=== PATIENT | male | born 1935 | race Caucasian/White ===

== ENCOUNTER 2018-10-07 21:40 | Emergency (ER) | payer OTHER, BC ==
--- NOTE | 2018-10-07 21:50 | PDOC ---
History of Present Illness - General Stated Complaint: FALL Time Seen by Provider: 10/07/18 21:50 History Source: Patient Exam Limitations: No Limitations - History of Present Illness Initial Comments: Pt is an 83 yo M, with PMH of BPH and lymphoma (s/p chemo and radiation in remission since 2016), who is presenting with R knee pain after a fall. Pt states he was blowing snow in his front drive, and he was wearing slippers. Pt slipped on the wet ground, and fell onto his R knee. Pt was unable to get himself up, but called for his daughter in the house, who called EMS. Pt did not take any pain medications prior to arrival. Pt did not fall and hit his head , and he is not on any blood thinner medications. Pt denies any fevers/chills, headache, vision changes, syncope, chest pain, palpitations, SOB, nausea/ vomiting, abdominal pain, loss of stool/urine incontinence, numbness and tingling in his extremities, urinary symptoms, diarrhea/constipation, or leg swelling. Pt was also in the ER this AM, after a burn to his R lateral ankle from the humidifier wire in his house. Pt has been keeping the bandages clean and has silver cream to apply to the injury tonight, with clean bandage supplies at home. Social: Pt denies any cigarette, alcohol, or drug use. Pt denies any recent travel or sick contacts. Surgical: rotator cuff injury, biceps tendon tear. Family: no relevant history. 10/08/18 05:33 Past History - Travel Traveled outside of the country in the last 30 days: No Close contact w/someone who was outside of country & ill: No - Past Medical History Allergies/Adverse Reactions: Allergies Allergy/AdvReac Type Severity Reaction Status Date / Time latex Allergy Severe Hives Verified 10/07/18 22:18 No Known Drug Allergies Allergy Verified 10/07/18 22:18 Anemia: No Asthma: No Cancer: Yes (lymphoma) Cardiac Disorders: No Hx Myocardial Infarction: No Diabetes: No HTN: No Hypercholesterolemia: No - Surgical History Orthopedic Surgery: Yes (rotator cuff, biceps tendon rupture) Review of Systems - Review of Systems Able to Perform ROS?: Yes Is the patient limited Sinhala proficient: No Constitutional: Yes: Weight Stable. No: Chills, Diaphoresis, Fever, Loss of Appetite, Weakness HEENTM: No: Blurred Vision, Double Vision, Nose Congestion, Throat Pain Respiratory: No: Cough, Orthopnea, Shortness of Breath Cardiac (ROS): No: Chest Pain, Edema, Irregular Heart Rate, Lightheadedness, Palpitations, Syncope, Chest Tightness ABD/GI: No: Constipated, Diarrhea, Nausea, Poor Appetite, Poor Fluid Intake, Vomiting, Abdominal cramping : No: Burning, Dysuria, Pain, Urgency Musculoskeletal: Yes: See HPI, Joint Pain, Joint Swelling. No: Back Pain, Muscle Pain, Muscle Weakness, Neck Pain Integumentary: No: Bruising, Erythema, Rash Neurological: No: Headache, Numbness, Paresthesia, Weakness, Unsteady Gait, Ataxia, Dizziness Psychiatric: No: Sleep Pattern Change, Change in Appetite Endocrine: No: Increased Urine, Change in Weight Hematologic/Lymphatic: No: Anemia, Blood Clots, Easy Bleeding, Easy Bruising All Other Systems: Reviewed and Negative *Physical Exam - Physical Exam General Appearance: Yes: Nourished, Appropriately Dressed. No: Apparent Distress HEENT: positive: EOMI, ELEANOR, Normal ENT Inspection, Normal Voice, Pharynx Normal , Hearing Grossly Normal. negative: Scleral Icterus (R), Scleral Icterus (L), Pharyngeal Erythema, Tonsillar Exudate, Tonsillar Erythema, Rhinorrhea, Sinus Tenderness Neck: positive: Trachea midline, Normal Thyroid, Supple. negative: Tender, Rigid, Decreased range of motion, Lymphadenopathy (R), Lymphadenopathy (L), Rigidity Respiratory/Chest: positive: Lungs Clear, Normal Breath Sounds. negative: Chest Tender, Respiratory Distress, Accessory Muscle Use, Crackles, Wheezing Cardiovascular: positive: Regular Rhythm, Regular Rate, S1, S2. negative: Edema , JVD, Murmur Vascular Pulses: Dorsalis-Pedis (R): 4+, Doralis-Pedis (L): 4+ Gastrointestinal/Abdominal: positive: Normal Bowel Sounds, Flat, Soft. negative : Tender, Organomegaly, Pulsatile Mass, Distended, Guarding, Rebound Rectal Exam: positive: deferred Lymphatic: negative: Adenopathy, Tenderness Musculoskeletal: positive: Decreased Range of Motion (Edema in R knee compared to L. Pt able to flex and extend knee and hip. No posterior knee pain, DP pulses +4. Anterior and posterior drawer test without instability, no tenderness with varus or valgus stress on the knee. R patella appears different from L, increased gap in R patella-femoral area with straight-leg test, but no instability or laxity of the patella. ). negative: Normal Inspection, CVA Tenderness, Vertebral Tenderness Extremity: positive: Normal Capillary Refill, Normal Inspection, Normal Range of Motion, Pelvis Stable, Swelling. negative: Tender, Pedal Edema Integumentary: positive: Normal Color, Dry, Warm, Other (Pt R ankle with clean bandages (from burn this morning). ). negative: Clammy, Diaphoresis, Rash, Ecchymosis Neurologic: positive: firearms inspector II-XII NML intact, Fully Oriented, Alert, Normal Mood/ Affect, Normal Response, Motor Strength 5/5. negative: EOM Palsy, Facial Droop , Numbness, Sensory Deficit Medical Decision Making - Medical Decision Making Pt was seen at bedside, also will be seen by attending Dr. De Leon. Pt presenting with R knee pain after a fall. Pt states he was blowing snow in his front drive , and he was wearing slippers. Pt slipped on the wet ground, and fell onto his R knee. Pt was unable to get himself up, but called for his daughter in the house, who called EMS. Pt did not take any pain medications prior to arrival. Pt did not fall and hit his head, and he is not on any blood thinner medications. Pt denies any fevers/chills, headache, vision changes, syncope, chest pain, palpitations, SOB, nausea/vomiting, abdominal pain, loss of stool/ urine incontinence, numbness and tingling in his extremities, urinary symptoms, diarrhea/constipation, or leg swelling. Pt was also in the ER this AM, after a burn to his R lateral ankle from the humidifier wire in his house. Pt has been keeping the bandages clean and has silver cream to apply to the injury tonight, with clean bandage supplies at home. Pt has hx of lymphoma, and does not want any additional CT scans done at this time, despite explaining bleeding risk/shearing injuries due to age. Vitals stable, pt afebrile. PE showed pt alert and oriented. Edema in R knee compared to L. Pt able to flex and extend knee and hip. No posterior knee pain, DP pulses +4. Anterior and posterior drawer test without instability, no tenderness with varus or valgus stress on the knee. R patella appears different from L, increased gap in R patella-femoral area with straight-leg test, but no instability or laxity of the patella. Pt R ankle with clean bandages (from burn this morning). firearms inspector generally intact, muscular strength and sensation intact. Clear heart and lung sounds, no JVD, b/l pedal edema, or heart murmur. No abdominal or CVA tenderness to palpation, no rebound, no guarding. Considering patellar dislocation vs femur fracture vs ligamentous/meniscal injury. Ordered work-up including x-ray of R knee and R femur. *PT REFUSED HEAD CT. Risks and benefits explained. Provided 650 mg PO tylenol for improvement of pain. Will continue to reassess pt and monitor for symptomatic improvement. 10/07/18 22:40 X-ray shows likely patellar tendon tear, as patella is displaced superiorly over the femur. Paging orthopedics to determine outpatient vs inpatient management. Pts pain is controlled with tylenol. 10/07/18 23:11 (entered later). Spoke with Dr. Meyer (orthopedics), who stated pt can be placed in knee immobilizer and rachna-bandage for swelling. Dr. Meyer will see the pt Tuesday morning in the clinic. Pt provided crutches and knee immobilizer. RLE neurovascularly intact. Pt pain controlled. Pt can be discharged to home with follow-up. Pt advised to follow-up with PCP in 1-2 days and has been referred to orthopedics (Dr. Meyer). Strict return precautions provided with pt understanding. 10/08/18 05:27 *DC/Admit/Observation/Transfer Diagnosis at time of Disposition: Patellar tendon avulsion Qualifiers: Encounter type: initial encounter Laterality: right Qualified Code(s): S86.891A - Other injury of other muscle(s) and tendon(s) at lower leg level, right leg, initial encounter Patellar tendon rupture Qualifiers: Encounter type: initial encounter Laterality: right Qualified Code(s): S86.811A - Strain of other muscle(s) and tendon(s) at lower leg level, right leg , initial encounter - Discharge Dispostion Disposition: HOME Condition at time of disposition: Stable Decision to Admit order: No - Referrals Referrals: Fransico Cook MD [Staff Physician] - Slick Meyer DO [Staff Physician] - - Patient Instructions Printed Discharge Instructions: DI for Patellar Tendinopathy Additional Instructions: You were seen in the ER today for right knee pain. The results of your imaging today showed a likely patellar tendon tear. Please follow-up with your primary care doctor and Dr. Meyer (orthopedics) on Tuesday to discuss your visit and make sure your symptoms have improved. Please return to the ER if you have any worsening pain, confusion, headache, development of fevers or chills, loss of consciousness, inability to tolerate food or fluids, or any other concerns. Please continue to use the knee immobilizer and crutches, with weight-bearing as tolerated. You can continue to take tylenol and ibuprofen for pain every 4 hours as needed. - Post Discharge Activity
--- NOTE | 2018-10-07 22:11 | PDOC ---
Attending Attestation - HPI HPI: 10/07/18 22:38 The patient is a 83 year old male with a significant past medical history of lymphoma who presents to the emergency department with an injury s/p fall earlier today. The patient states that he was at home today earlier this evening when he went outside to shovel some snow in his house slippers. The patient states that he fell in his right side and injured his knee. He denies any head injury, lightheadedness, loc. He denies any vision change, shortness of breath headache. The patient denies any other symptoms or complaints. Documentation prepared by Patrice Cortes, acting as medical registrar for Rhiannon De Leon MD. <Patrice Cortes - Last Filed: 10/07/18 22:38> - Resident Resident Name: Eleanor Crockett - ED Attending Attestation I have performed the following: I have examined & evaluated the patient, The case was reviewed & discussed with the resident, I agree w/resident's findings & plan, Exceptions are as noted - Physicial Exam PE: 10/07/18 22:42 Mr Saenz is a very pleasant patient Awake and alert Oriented x 3 RRR CTA Right knee appears abnormal Pt is able to flex the right knee with no difficulty He is able to stand on the affected knee with no difficulty No swelling Stable to anterior and posterior drawer Stable to varus and valgus stress No joint swelling 10/07/18 22:45 - Medical Decision Making 10/07/18 22:45 Will do: Xray Pt refusing CT head Allowing us to give tylenol po 10/07/18 22:46 Xray demonstrates no fracture Exam consistent with ruptured patella tendon/quad tendon Case reviewed with Dr Meyer He recommends knee immobilizer and follow up in the office on Tuesday <Rhiannon De Leon - Last Filed: 10/09/18 20:13> *DC/Admit/Observation/Transfer <Patrice Cortes - Last Filed: 10/07/18 22:38> - Discharge Dispostion Decision to Admit order: No <Rhiannon De Leon - Last Filed: 10/09/18 20:13> Diagnosis at time of Disposition: Patellar tendon rupture Patellar tendon avulsion Qualifiers: Encounter type: initial encounter Laterality: right Qualified Code(s): S86.891A - Other injury of other muscle(s) and tendon(s) at lower leg level, right leg, initial encounter - Discharge Dispostion Disposition: HOME Condition at time of disposition: Stable - Referrals Referrals: Fransico Cook MD [Staff Physician] - Slick Meyer DO [Staff Physician] - - Patient Instructions Printed Discharge Instructions: DI for Patellar Tendinopathy Additional Instructions: You were seen in the ER today for right knee pain. The results of your imaging today showed a likely patellar tendon tear. Please follow-up with your primary care doctor and Dr. Meyer (orthopedics) on Tuesday to discuss your visit and make sure your symptoms have improved. Please return to the ER if you have any worsening pain, confusion, headache, development of fevers or chills, loss of consciousness, inability to tolerate food or fluids, or any other concerns. Please continue to use the knee immobilizer and crutches, with weight-bearing as tolerated. You can continue to take tylenol and ibuprofen for pain every 4 hours as needed.
[2018-10-07 22:22] VITALS: BP 151/83; PULSE 73; TEMP 98; BMI 24.3
[2018-10-07] MEDS ORDERED: ACETAMINOPHEN 325 MG TABLET (FP) PO ONE (22:25)
[2018-10-07] MEDS ORDERED: ACETAMINOPHEN 325 MG TABLET (FP) ONE (22:26)
== END 2018-10-08 00:22 | disposition home or self-care (01) ==
LOC: JER 21:40
PROC: 2W3QXYZ Immobilization of Right Lower Leg using Other Device (ICD-10-PCS; principal; 2018-10-07)
DX: S86.811A Strain of other muscle(s) and tendon(s) at lower leg level, right leg, initial encounter (principal); W00.2XXA Other fall from one level to another due to ice and snow, initial encounter; Y93.29 Activity, other involving ice and snow; Y92.014 Private driveway to single-family (private) house as the place of occurrence of the external cause; Y99.8 Other external cause status; Z85.72 Personal history of non-Hodgkin lymphomas
CPT/HCPCS: 73552-TC-RT-FY; 73564-TC-RT-FY; 99282-25